=== PATIENT | male | born 1985 | race African-American/Black ===

== ENCOUNTER 2025-03-12 08:21 | Emergency (ER) | payer SELFPAY ==
[2025-03-12 08:22] VITALS: BP 120/83
--- NOTE | 2025-03-12 08:48 | ED.GENMED ---
History of Present Illness
General
Chief Complaint: Skin Problem
Source: patient
Time Seen by Provider: 03/12/25 08:44
History of Present Illness
History of Present Illness:
39-year-old male with past medical history of previous seizures, (currently not on medications) presenting to the ER for evaluation of bumps on his bilateral elbows and anterior right knee that he was concerned could be beginning of a MRSA
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 He notes that the areas are not painful, slightly pruritic. Denies fevers or infectious symptoms. He has not attempted any medications for relief and denies any
new medications. Also denies any new clothing, foods, detergents, lotions/soaps. No other concerns at this time.
Past History
Past History
ED Past Medical History: Seizures
ED Past Surgical History: Other (Skin graft)
Social History
Tobacco: Smoker
Alcohol: Daily (Vodka)
Drug: Marijuana (daily) and Other (fentanyl)
Personal:
Living: alone
Employment: Not employed
Review of Systems
Review of Systems
All Other Systems: ROS reviewed and negative except as documented in HPI and ROS
Phy Exam
Physical Exam
Physical Exam:
GENERAL: Alert , in no apparent distress
EYE: conjunctiva clear
Head: Normocephalic atraumatic
NECK: Supple,
ENT: mmm.
LUNGS: no acute respiratory distress
NEUROLOGICAL: Alert and oriented
SKIN: Warm and dry, bilateral elbows over the olecranon and in the anterior right knee with dried somewhat scaly skin, minimal erythema, none weeping, nontender, no increased warmth
MUSCULOSKELETAL: well perfused.
PSYCH: Normal and appropriate interaction.
Scores
Heart Failure Risk
Heart Failure Risk Score: Not Applicable
Heart Score for Chest Pain Patients
STEMI patient?: Not applicable
Withdrawal Assessment of Alcohol
Withdrawal Assessment Completed?: Not applicable
Course
Vital Signs
Initial and Last Documented VS:
Initial Vital Signs
Temp Pulse Resp BP Pulse Ox
97.5 F 69 18 120/83 99
03/12/25 08:22 03/12/25 08:22 03/12/25 08:22 03/12/25 08:22 03/12/25 08:22
Last Documented Vital Signs
Temp Pulse Resp BP Pulse Ox
97.5 F 69 18 120/83 99
03/12/25 08:22 03/12/25 08:22 03/12/25 08:22 03/12/25 08:22 03/12/25 08:49
MDM/Problems Addressed
Differential Diagnosis Includes:
Eczema/Atopic Dermatitis
Cellulitis
Tinea
Scabies
MDM/Problems Addressed:
39-year-old male presenting the ER for evaluation of bumps on his bilateral elbows and right anterior knee. Given the location of the symptoms combined with the overall look of the bumps/rash I suspect atopic dermatitis to be the most likely
diagnosis. Will treat with topical steroid cream. Doubt MRSA/cellulitis as the area is dry, nontender, none weeping. Advised on return precautions. Follow-up with primary care provider. Stable for discharge.
*Pulse Oximetry
SaO2: 99
Oxygen Mode of Delivery: Room air
Patient hypoxic: no
*Critical Care Note
Total Time (30-74mins, 75-104mins- exclusive of procedures): Not Applicable
ED Attending Note
-
Portions of this chart may have been created with voice recognition software.� Occasional wrong word or��sound alike� substitutions may have occurred due to the inherent limitations of voice recognition software.
Discharge Plan
Departure
Patient Disposition: Home (Routine Discharge)
Date of Disposition: 03/12/25
Time of Disposition: 08:48
Patient with high blood pressure during this ER visit?: No
Discharge Problem:
Eczema
Instructions: Eczema - ED (DC)
Prescriptions:
New
hydrocortisone 1 % cream
1 applic topical TID Qty: 28.4 0RF
No Action
naloxone [Narcan] 4 MG spray,non-aerosol
4 mg intranasal DIRECTED Qty: 2 0RF
Interventions
Interventions:
*Risk Screen - Suicide Last Done: 03/12/25 08:22
*General Assessment Last Done: 03/12/25 08:22
*Neglect/Abuse Screening Last Done: 03/12/25 08:22
Discharge Date and Time
Print Language: BERMUDIAN
== END 2025-03-12 09:29 | disposition home or self-care (01) ==
LOC: EMR 08:21
PROVIDERS: EMERGENCY PHYSICIAN Emergency Medicine
DX: L30.9 Dermatitis, unspecified (principal); F17.200 Nicotine dependence, unspecified, uncomplicated; Z86.14 Personal history of Methicillin resistant Staphylococcus aureus infection
CPT/HCPCS: 99282